=== PATIENT | male | born 1955 | race Caucasian/White ===

== ENCOUNTER → 2020-01-03 10:11 | Outpatient (CLI) | payer MEDICARE, SELFPAY ==
--- NOTE | ~2020-01-03 | MR_ITS ---
EXAMINATION: MR lumbar spine wo [facility] EXAM DATE: 01/03/2020 11:05 INDICATION: Low back pain, lateral right leg (knee to foot) numbness s/p pulling . TECHNIQUE: Multi-sequential, multiplanar MR images of the lumbar spine were obtained without contrast . Sagittal T1, T2, T2 fat saturation images. Axial T2 weighted images. There is no prior study for comparison. FINDINGS: The conus medullaris terminates at the L1/2 level and has normal signal intensity and morph ology. Moderate to severe loss of all lumbar disc heights, but with only mild endplate degenerative change. There is 2 mm retrolisthesis L1 on L2, 3 mm retrolisthesis L4 on L5, and 4 mm retrolisthesis L5 on S1. The conus medullaris terminates at the L1/2 level and has normal signal intensity and morph ology. There are no suspicious marrow signal abnormalities. Paraspinal soft tissue is unremarkable. Level by level evaluation: T11-12: Disc does not extend beyond the endplate margin. Facet arthropathy: Mild. Neural foraminal stenosis: No stenosis. Central canal stenosis: No stenosis. T12-L1: There is a mild diffuse disc bulge. Facet arthropathy: Mild. Neural foraminal stenosis: No stenosis. Central canal stenosis: No stenosis. L1-L2: There is a mild to moderate diffuse disc bulge. Facet arthropathy: Mild to moderate. Neural foraminal stenosis: Mild to moderate right, mild left. Central canal stenosis: Mild. L2-L3: There is a mild diffuse disc bulge. Facet arthropathy: Moderate. Neural foraminal stenosis: Mild to moderate right, mild left. Central canal stenosis: Mild. L3-L4: There is a mild to moderate diffuse disc bulge. Facet arthropathy: Mild to moderate. Neural foraminal stenosis: Mild bilateral. Central canal stenosis: Mild. L4-L5: There is a moderate diffuse disc bulge. Facet arthropathy: Moderate. Neural foraminal stenosis: Moderate to severe left, moderate right. Central canal stenosis: Mild. L5-S1: There is a moderate diffuse disc bulge. Facet arthropathy: Moderate. Neural foraminal stenosis: Moderate to severe bilateral. Central canal stenosis: Mild. IMPRESSION: 1. Moderate to severe lower lumbar spondylosis. 2. Spondylolistheses. Reviewed, dictated and finalized at location A.
== END ==
PROVIDERS: PCP Internal Medicine; Visit Provider Internal Medicine
DX: M54.5 Low back pain (principal); M47.816 Spondylosis without myelopathy or radiculopathy, lumbar region; M43.16 Spondylolisthesis, lumbar region
CPT/HCPCS: 72148

== ENCOUNTER 2020-02-18 08:00 | Outpatient (RCR) | payer MEDICARE, SELFPAY ==
--- NOTE | 2020-01-21 14:25 | PTOPEVAL ---
INITIAL PHYSICAL THERAPY EVALUATION and PLAN OF CARE Thank you for referring Eric Anaya to [facility].? Eric is scheduled to be seen for physical therapy? 2x/week for 2 weeks, 1x/wk x 2 weeks. Please review, sign, date and return this plan of care FCO. I agree with and certify that the following plan of care is medically necessary. Referring Physician Date Admitting Provider: Attending Provider: Brandyn Goetz, Referring Provider: *PT Outpatient Evaluation Start: 01/21/20 08:45 Freq: Status: Active Protocol: Document 01/21/20 08:45 KAI (Rec: 01/21/20 10:00 KAI [email or web address]) Therapy Assessment Status Assessment Status Assessment Status Evaluation Outpatient Past Medical History Past Medical History Source of Past Medical History Patient Neurological History Hx Other Neurological Disorders Yes: 5 concussions Cardiovascular History Hx Hypertension Yes Respiratory History Hx Respiratory Disorders No Significant History Gastrointestinal History Hx Gastrointestinal Disorders No Significant History Genitourinary History Hx Genitourinary Disorders No Significant History Musculoskeletal History Hx Arthritis Yes: neck Hx Back Pain Yes Endocrine History Hx Endocrine Disorders No Significant History HEENT History Hx Cataracts Yes Hx Eye Surgery Yes: repositioning of lens from cataract surgery at age 34 Evaluation Information Problem Diagnosis lumbar disc disease, low back pain Onset October 2018 Subjective Information One of several injuries - Query Text:As Reported By Patient/ pulling weeds - bent over Family position - felt numbness outside of entire lateral R leg - from foot to thigh - once it settled - numbness was just present R lower leg and into foot - laterally - injury occurred October 2018 - numbness still present Multiple injuries over the years Still very active - lifting heavy wheelbarrow felt /heard click in lower back more on L side - for a brief period of time numbness in R lateral lower leg and foot went away - but numbness then returned. Usually worse in the mornings. Usually sleeps
--- NOTE | 2020-02-18 09:14 | PTOPEVAL ---
PHYSICAL THERAPY DISCHARGE SUMMARY Thank you for referring Eric Anaya to [facility] [place].? Eric has been seen in PT x 9 visits. He has met goals set and is to continue with HEP. He is ready for d/c from PT. I agree with Eric's discharge from PT. Referring Physician Date Admitting Provider: Attending Provider: Brandyn Goetz, Referring Provider: *PT Outpatient Evaluation Start: 01/21/20 08:45 Freq: Status: Active Protocol: Document 02/18/20 08:01 KAI (Rec: 02/18/20 09:13 KAI [email or web address]) Therapy Assessment Status Assessment Status Assessment Status Discharge Evaluation Information Problem Subjective Information Eric states that there is Query Text:As Reported By Patient/ just a little numbness on ball Family of foot - not even in the little toe anymore. Still doing well with his golf swing now. Less stiffness in morning following golfing day now. Plans to continue with HEP on a regular basis. Pain Assessment Timing of Pain Assessment Timing of Pain Assessment Assessment Pain Scale Pain Scale Used Numeric (1 - 10) Self Report Pain Assessment Lower Back Reported Pain Level 0 Lowest Pain Intensity 0 Greatest Pain Intensity 2 Pain Score Pain Score 0: Self Report Cervical and Lumbar ROM Lumbar ROM Lumbar Flexion (0-90) 45 Query Text:Active in Degrees Lumbar Extension (0-40) 20 Query Text:Active in Degrees Lumbar Lateral Flexion Right (0-40) 20 Query Text:Active in Degrees Lumbar Lateral Flexion Left (0-40) 20 Query Text:Active in Degrees Lumbar Comments negative standing flexion test Palpation Assessment Palpation Palpation good sacral and lumbar spinal segmental mobility - no tenderness with P-A mobilization Decreased lumbar paraspinal tissue tension - especially on R side PT Clinical Summary Clinical Summary Protocol: PTEVCODE PT Clinical Summary Modified Oswestry LBP Questionnaire - 10% Eric has done well with PT in regards to his back pain and R distal LE numbness. Back pain has been signficantly reduced - will still have difficulty standing for greater than 1 hour. SIJ
== END 2020-03-08 15:02 | disposition home or self-care (01) ==
LOC: ANHHIPT 08:00
PROVIDERS: PCP Internal Medicine; Visit Provider Internal Medicine
DX: M54.5 Low back pain (principal); M51.36 Other intervertebral disc degeneration, lumbar region
CPT/HCPCS: 97110; 97140; 97161

== ENCOUNTER 2022-10-20 13:30 | Outpatient (RCR) | payer MEDICARE, SELFPAY ==
--- NOTE | 2022-09-18 17:24 | PTOPEVAL1 ---
Assessment and note entered by Jami Kruger, PT Evaluation Information Assessment Status Evaluation Diagnosis cervicalgia Onset 05/2022 Subjective Information Didn't start hurting till a few weeks after trip. Has had on and off episodes with neck pain since college incident. Has had mulitple odd landings in history. No pain or tingling in arms. Feels tight at base of skull, goes down both sides of neck. Wants to try ot learn to stretch properly so doesn't have to deal with this the rest of life. Reports has been painting a lot recently and feels that this is helpful because is moving more. More is active, feels better. Reported Pain Level Pain Score 0: Self Report Additional Pain Score Comments Putting eye drops in is aggravating becuase can't look up high enough Assessment PT Clinical Summary Pt presents with complaints of neck pain and history of multiple neck injuries in the past. Demo's decreased ROM globally, (+) muscle tone and spasms, decreased curvature throughout spine, and pinching on right side of neck with ROM activities. No radicular symptoms. Pt will benefit from physical therapy to address deficits, and improve discomfort. Plan of Care Interventions Electrical Stimulation,Hot Pack/Cold Pack,Manual Therapy,Neuro Re-education,Therapeutic Activities, Therapeutic Exercise,Ultrasound PT Services Indicated Yes Treatment Frequency and 2x weekly x 8 weeks Duration These treatments will address the objective and functional deficits as defined above. The patient will be advanced safely and appropriately in order for the patient to progress towards his/her prior level of function. Additional exercises will be introduced and as well as a comprehensive home exercise program upon discharge, if needed, ?to ensure carryover of functional gains achieved in the clinic. This treatment plan has been reviewed and agreement upon by the patient.
--- NOTE | 2022-09-18 17:24 | OPREHPOC ---
Outpatient Therapy Plan of Care This is a Multidisciplinary Plan of Care that may contain components documented by all disciplines (PT, OT, and ST.) PT Problem 1 PT Problem #1 Knowledge Deficit PT Goal 1 Goal Pt will be independent in HEP Target Visit 8 PT Problem 2 PT Problem #2 Pain PT Goal 1 Goal Pt will report greatest pain at 3/10 or less Target Visit 8 PT Goal 2 Goal Pt will report greatest pain at 1/10 or less PT Problem 3 PT Problem #3 Impaired Range of Motion PT Goal 1 Goal Pt will demo improved cervical ROM by 25% (75% of normal total) in all planes Target Visit 8 PT Goal 2 Goal Pt will report no increase in symptoms with ROM testing Target Visit 16
--- NOTE | 2022-10-20 13:59 | PTOPDC ---
Assessment and note entered by Jami Kruger, PT Assessment Status Discharge Diagnosis cervicalgia Onset 05/2022 Subjective Information Feels like everyday is getting better. Is 99.9% better overall Is able to put his eye drops in 3x daily without 6pain any longer With postures is trying to think about it and is able to correct when thinking about it and doing posture Reported Pain Level Pain Score 0: Self Report Assessment PT Clinical Summary Pt has attended therapy consistently for neck pain. He has met most of his goals with the only unmet goal being 2/10 at worst rating for pain vs goal of 1/10. Pt tricia juares improved pain reports, ROM, and especially resting soft tissue tone. Pt is happy with his progress and reports feeling 99 .9% improved overall. Pt has been provided updated home exercises and is independent in performance of these. Thus patient is being discharged from therapy services for completion of plan of care.
== END 2022-10-20 14:31 | disposition home or self-care (01) ==
LOC: ANHHIPT 13:30
PROVIDERS: PCP Family Medicine; Visit Provider Family Medicine
DX: M54.2 Cervicalgia (principal)
CPT/HCPCS: 97110; 97140; 97162; 97750

== ENCOUNTER 2024-10-01 08:09 | Outpatient (CLI) | payer MEDICARE, OTHER, SELFPAY ==
--- NOTE | ~2024-10-01 | CT_ITS ---
CLINICAL INDICATION: COMPARISON: . TECHNIQUE: Multiple contiguous axial images of the chest was performed without the use leaving only o rdered by you want speaking with mural hematoma the administration of intravenous contrast. This CT examination was performed utilizing dose reduction techniques. DLP: mGy-cm FINDINGS/OBSERVATIONS: LUN mm calcified nodule within the medial margin of the right lower lobe, suggesting prior granulo matous disease for which no further follow-up is needed. The remainder of the lungs are otherwise clear. HEART: The heart is of normal size, without pericardial effusion. MEDIASTINUM: Calcified lymph nodes within the mediastinum suggesting prior granulomatous disease. Min imal No pathologically enlarged or morphologically suspicious lymph nodes are identified within the medias tinum, bilateral axilla, within the soft tissues of the anterior chest wall. SOFT TISSUES OF THE CHEST: Unremarkable. BONES OF THE CHEST: No acute fracture. No lytic or blastic lesions are identified. Trace degenerative disease within the thoracic spine with disc space narrowing and vacuum phenomena. IMPRESSION: Lung-RADS category 2: Benign appearance or behavior. Continue annual screening with noncontrast low-d ose chest CT in 12 months. Reviewed, dictated and finalized at location A. IMPRESSION: Lung-RADS category 2: Benign appearance or behavior. Continue annual screening with noncontrast low-dose chest CT in 12 months.
--- OUTSIDE RECORDS SUMMARY | 2024-10-01 08:13 | XMS_ITS | Clinical Summary ---
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 Name Role Phone Rabia Augustin PA-C Primary Care Provider [phone] Social History Tobacco Use Types Packs/Day Years Used Date Smoking Tobacco: Never Assessed Sex and Gender Information Value Date Recorded Sex Assigned at Not on file Legal Sex Male 7:24 PM CDT Gender Identity Not on file Sexual Orientation Not on file Plan of Treatment Health Maintenance Due Date Last Done Comments Colorectal Cancer Screening Colonoscopy (10 Years) 1955 Hepatitis C 1972 Zoster Vaccines (1 of 2) 2004 Annual Medicare Wellness Visit 08/09/2019 COVID-19 Vaccine ( season) 2024 12/06/2023, 12/15/2022, 01/02/2022, Additional history exists DTaP, Tdap and Td Vaccines (2 - Td or Tdap) 12/05/2026 12/05/2016 RSV Immunization or 60+ Years (1 - 1-dose 75+ series) 2029 Pneumococcal Vaccine: 50+ Years Completed 03/25/2024 Meningococcal B Vaccine Aged Out No l onger eligible based on patient's age to complete this topic Meningococcal Vaccine Aged Out No cristina milton eligible based on patient's age to complete this topic RSV Immunizations Under 20 Months Aged Out No longer eligible based on patient's age to complete this topic Insurance [facility] MEDICARE Care Teams Gem Stone Cutter Relationship Specialty Start Date End Date Rabia Augustin PA-C [address] [place] [address] [address] [place] [address] PCP - General [employer] 04/03/24
== END 2024-10-01 08:10 | disposition home or self-care (01) ==
PROVIDERS: PCP Physician Assistant Medical; Visit Provider Physician Assistant Medical
DX: R91.1 Solitary pulmonary nodule (principal)
CPT/HCPCS: 71250